=== PATIENT | female | born 2000 | race Caucasian/White ===

== ENCOUNTER → 2021-09-28 11:30 | Outpatient (CLI) | payer BC, SELFPAY ==
--- NOTE | ~2021-09-28 | MR_ITS ---
EXAMINATION: MR lumbar spine wo con DATE: 09/28/2021 11:57 INDICATION: Low back pain radiating to the right gluteal muscle. TECHNIQUE: Magnetic resonance imaging (MRI) of the lumbar spine was performed without intravenous con trast. Sequences included sagittal T2-weighted FSE, sagittal T2-weighted FS FSE, sagittal T1-weighted FSE, and axial T2-weighted FSE. COMPARISON: None FINDINGS: Bone alignment is normal. Vertebral body heights are normal. There is mildly decreased disc height at L5-S1. The distal spinal cord signal intensity is normal. The conus medullaris is at L1-L2 . The following disc levels are specifically discussed: L1-L2: The disc does not extend beyond the endplate margin. There is mild bilateral facet joint osteo arthritis. There is no neural foraminal stenosis. There is no central canal stenosis. L2-L3: The disc does not extend beyond the endplate margin. There is mild bilateral facet joint osteo arthritis. There is no neural foraminal stenosis. There is no central canal stenosis. L3-L4: The disc does not extend beyond the endplate margin. There is mild bilateral facet joint osteo arthritis. There is no neural foraminal stenosis. There is no central canal stenosis. L4-L5: The disc is bulging. There is mild bilateral facet joint osteoarthritis. There is mild bilater al neural foraminal stenosis. There is no central canal stenosis. L5-S1: There is a left central protrusion with annular fissure. There is mild bilateral facet joint o steoarthritis. There is no neural foraminal stenosis. There is mild central canal stenosis. IMPRESSION: 1. Mild lumbar spondylosis. Reviewed, dictated and finalized at location A. IMPRESSION: 1. Mild lumbar spondylosis.
== END ==
PROVIDERS: PCP Physician Assistant Medical
DX: M47.896 Other spondylosis, lumbar region (principal)
CPT/HCPCS: 72148

== ENCOUNTER 2021-10-23 13:26 | Outpatient (CLI) | payer BC, SELFPAY ==
--- NOTE | ~2021-10-23 | MR_ITS ---
EXAMINATION: MR pelvis wo con DATE: 10/23/2021 14:01 INDICATION: Pelvic joint pain. TECHNIQUE: Magnetic resonance imaging (MRI) of the pelvis was performed without intravenous contrast. COMPARISON: Lumbar spine MRI 09/28/2021 FINDINGS: There are no pathologically enlarged lymph nodes. There is physiologic fluid in the pelvis. Bone alig nment is normal. No fracture. The femoral head/neck morphologies are normal. The hip joint spaces are normal. There is a partial tear of right hamstring origin. Left hamstring origin is normal. The glut eus minimus and gluteus medius tendons are normal. There is mild bilateral trochanteric bursitis. The iliopsoas tendons are normal. The musculature is normal. IMPRESSION: 1. Partial tear of right hamstring origin. Reviewed, dictated and finalized at location A.
== END 2021-10-23 13:27 ==
PROVIDERS: PCP Physician Assistant Medical
DX: M25.551 Pain in right hip (principal); G57.01 Lesion of sciatic nerve, right lower limb
CPT/HCPCS: 72195